=== PATIENT | female | born 1970 | race Caucasian/White ===

== ENCOUNTER 2017-02-03 10:30 | Day surgery (SDC) | payer OTHER ==
[~2017-02-03] VITALS: Ht 165.1 cm; Wt 79.5 kg
[~2017-02-03 10:30] MED LIST: CELEBREX200 MG PO; CIPRO500 MG PO; FLEXERIL10 MG PO; FLEXERIL5 MG PO; GABAPENTIN300 MG PO; HYDROCODON-ACE1 EAC7 PO; KEFLEX500 MG PO; MIRALAX255 GM PO; MOBIC15 MG PO; MOBIC7.5 MG PO; MORPHINE SULFAT15 M1 PO; MOTRIN800 MG PO; NAPROSYN500 MG PO; NEURONTIN300 MG PO; NORCO 5/3251 TABLET PO; PERCOCET 5/31 TABLET PO; PREDNISONE10 M1 PO; PREDNISONE10 MG PO; TESSALON PERLE100 MG PO; TRAZODONE HCL50 MG PO; ULTRAM50 MG PO; VOLTAREN50 MG PO; XANAX0.25 MG PO; ZITHROMAX Z-PA250 MG PO
[2017-02-03 11:10] VITALS: BP 153/86
[2017-02-03 11:36] LABS: AMPHETAMINES QUANT VALUE 0 NG/ML; BARBITUATES QUANT VALUE 0 NG/ML; BENZODIAZEPINES QUANT VALUE 0 NG/ML; BENZODIAZEPINES, URINE SCREEN Negative (200 ng/mL); MARIJUANA QUANT VALUE 0 NG/ML; PHENCYCLIDINE QUANT VALUE 0 NG/ML
[2017-02-03 18:01] VITALS: BP 150/83
[2017-02-03 19:50] VITALS: BP 136/71
[2017-02-03 23:27] VITALS: BP 115/57
[2017-02-04 03:32] VITALS: BP 107/62
[2017-02-04 07:02] LABS: HEMATOCRIT 31.7 % (36.0-46.0); MCH 30.6 PG (29.0-34.0); MCHC 33.8 G/DL (30.0-36.0); MCV 90.6 FL (83-99); MEAN PLAT.VOLUME 10.9 uM^3 (9.5-12.4); PLATELET COUNT 180 K/uL (156-360); RBC DIS.WIDTH-CV 13.2 % (11.8-14.6)
[2017-02-04 07:14] LABS: WHITE BLOOD COUNT 7.4 K/uL (4.1-10.2)
[2017-02-04 08:00] VITALS: BP 119/86
[2017-02-04] MEDS ORDERED: DOCUSATE SODIU100 MG PO (11:04)
[2017-02-04] MEDS ORDERED: OXAYDO5 MG PO (11:04)
== END 2017-02-04 12:37 | disposition home or self-care (01) ==
LOC: SDC 10:30 → 2SOUTH 15:03 → 2EAST 17:44
PROVIDERS: Anesthesiology; Obstetrics & Gynecology
PROC: 0UTC8ZZ Resection of Cervix, Via Natural or Artificial Opening Endoscopic (ICD-10-PCS; principal; 2017-02-03)
PROC: 0UT0FZZ Resection of Right Ovary, Via Natural or Artificial Opening With Percutaneous Endoscopic Assistance (ICD-10-PCS; principal; 2017-02-03)
PROC: 0UT5FZZ Resection of Right Fallopian Tube, Via Natural or Artificial Opening With Percutaneous Endoscopic Assistance (ICD-10-PCS; principal; 2017-02-03)
PROC: 0UT9FZZ Resection of Uterus, Via Natural or Artificial Opening With Percutaneous Endoscopic Assistance (ICD-10-PCS; principal; 2017-02-03)
DX: N92.0 Excessive and frequent menstruation with regular cycle (principal); N94.6 Dysmenorrhea, unspecified; R10.2 Pelvic and perineal pain; N72 Inflammatory disease of cervix uteri; N80.0 Endometriosis of uterus; D25.9 Leiomyoma of uterus, unspecified; N83.291 Other ovarian cyst, right side; Z80.41 Family history of malignant neoplasm of ovary; F17.210 Nicotine dependence, cigarettes, uncomplicated; Z87.898 Personal history of other specified conditions; Z83.3 Family history of diabetes mellitus; Z81.8 Family history of other mental and behavioral disorders; Z88.1 Allergy status to other antibiotic agents
CPT/HCPCS: 80306 90; 85027; 88307; G0378; J0690; J1100; J1170; J1885; J2250; J2405; J3010; J7120

== ENCOUNTER 2017-05-05 16:09 | Emergency (ER) | payer OTHER ==
[~2017-05-05] VITALS: Ht 165.1 cm; Wt 70.0 kg
[~2017-05-05 16:09] MED LIST changes: +DOCUSATE SODIU100 MG PO; +OXAYDO5 MG PO
[2017-05-05 17:32] LABS: ADD MIUA? YES; BILIRUBIN NEGATIVE; BLOOD NEGATIVE; COLOR YELLOW ((YELLOW)); GLUCOSE (STRIP) NEGATIVE; KETONES NEGATIVE; LEUKOCYTES NEGATIVE; NITRITE NEGATIVE; PROTEIN (STRIP) NEGATIVE; SPECIFIC GRAVITY 1.014 (1.000-1.030); UROBILINOGEN 0.2 MG/DL (0.2-1.0)
[2017-05-05] MEDS ORDERED: MOTRIN800 MG PO (18:34)
[2017-05-05] MEDS ORDERED: REGLAN10 MG PO (18:34)
[2017-05-05 19:01] LABS: EPITHELIAL CELLS 1+ /HPF; MUCUS NONE SEEN /LPF; RED BLOOD CELLS 0-5 /HPF (0-5); WHITE BLOOD CELLS 0-5 /HPF (0-5)
[2017-05-05 19:02] LABS: AMORPHOUS URATES CRYSTALS RARE; BACTERIA RARE /HPF
[2017-05-05 19:04] VITALS: BP 165/103
== END 2017-05-05 19:04 | disposition home or self-care (01) ==
LOC: EME 16:09 → RME 16:09
PROVIDERS: Physician Assistant
DX: G43.909 Migraine, unspecified, not intractable, without status migrainosus (principal); F17.200 Nicotine dependence, unspecified, uncomplicated
CPT/HCPCS: 81003; 99281; 99283; J1885; J2765

== ENCOUNTER 2017-06-14 22:14 | Inpatient (IN) | payer OTHER ==
[~2017-06-14] VITALS: Ht 167.6 cm; Wt 77.5 kg
[~2017-06-14 22:14] MED LIST changes: +CALAN80 MG PO; +IRON325 M1 PO; +LYRICA75 MG PO; +METHADONE H5 MG/5 ML PO; +REGLAN10 MG PO
[2017-06-15 07:17] VITALS: BP 129/65
[2017-06-15 13:18] LABS: HEMATOCRIT 40.2 % (36.0-46.0)
[2017-06-15 13:23] LABS: MCV 92.6 FL (83-99)
[2017-06-15 14:00] VITALS: BP 132/74
[2017-06-15 16:27] VITALS: BP 140/68
[2017-06-15 20:05] VITALS: BP 121/72
[2017-06-16 00:06] VITALS: BP 134/78
[2017-06-16 08:15] VITALS: BP 137/82
[2017-06-16 12:13] LABS: HEMATOCRIT 31.5 % (36.0-46.0)
[2017-06-16 12:26] LABS: MCV 88.2 FL (83-99)
[2017-06-16 15:58] VITALS: BP 148/77
[2017-06-17 00:05] VITALS: BP 137/73
[2017-06-17 07:32] VITALS: BP 134/70
[2017-06-17] MEDS ORDERED: OXYCODONE HCL5 MG PO (10:05)
[2017-06-17] MEDS ORDERED: SENNA PLUS TAB1 EACH PO (10:05)
[2017-06-17] MEDS ORDERED: ELIQUIS2.5 MG PO (10:05)
== END 2017-06-17 16:57 | disposition home or self-care (01) | DRG 470 ==
LOC: ENRESERV 22:14 → 2SOUTH 06-15 06:46 → ENRESERV 06-15 11:38 → 3EAST 06-15 13:10 → 2SOUTH 06-15 14:45 → 3EAST 06-17 16:57
PROVIDERS: Orthopaedic Surgery
PROC: 0SR904A Replacement of Right Hip Joint with Ceramic on Polyethylene Synthetic Substitute, Uncemented, Open Approach (ICD-10-PCS; principal; 2017-06-15)
DX: M25.551 Pain in right hip (principal); F17.200 Nicotine dependence, unspecified, uncomplicated; G89.4 Chronic pain syndrome
CPT/HCPCS: 85014; 85018; C1713; J0131; J0690; J1100; J1885; J2250; J2405; J7050; J7120; S0020

== ENCOUNTER 2017-10-26 10:39 | Emergency (ER) | payer OTHER ==
[~2017-10-26] VITALS: Ht 165.1 cm; Wt 70.3 kg
[~2017-10-26 10:39] MED LIST changes: +ELIQUIS2.5 MG PO; +OXYCODONE HCL5 MG PO; +SENNA PLUS TAB1 EACH PO
[2017-10-26 11:48] LABS: HEMATOCRIT 41.2 % (36.0-46.0); MCH 29.4 PG (29.0-34.0); MCV 86.4 FL (83-99); PLATELET COUNT 255 K/uL (156-360); RBC DIS.WIDTH-CV 14.5 % (11.8-14.6); RBC DIS.WIDTH-SD 45.8 % (39-53); RED BLOOD COUNT 4.77 M/uL (3.80-5.20); WHITE BLOOD COUNT 5.7 K/uL (4.1-10.2)
[2017-10-26 12:01] LABS: CHLORIDE 106 mEq/L (99-109); POTASSIUM 3.6 mEq/L (3.7-5.4); SODIUM 142 mEq/L (136-147)
[2017-10-26 12:03] LABS: GLUCOSE 98 mg/dL (70-99)
[2017-10-26 12:05] LABS: ANION GAP 12 MEQ/L (2-14); TOTAL BILIRUBIN 0.4 mg/dL (0.0-1.0)
[2017-10-26 12:07] LABS: ALKALINE PHOSPHATASE 114 IU/L (3-129); GFR ESTIMATE (CALCULATED) > 59 mL/min/
[2017-10-26 12:08] LABS: UREA NITROGEN (BUN) 10 mg/dL (9-23)
[2017-10-26 12:17] LABS: QUANTITATIVE HCG < 4.0 MIU/ML
[2017-10-26 13:37] LABS: ADD MIUA? YES; BILIRUBIN MODERATE; BLOOD NEGATIVE; COLOR YELLOW ((YELLOW)); GLUCOSE (STRIP) NEGATIVE; KETONES NEGATIVE; LEUKOCYTES TRACE; NITRITE NEGATIVE; PROTEIN (STRIP) 30; SPECIFIC GRAVITY 1.028 (1.000-1.030)
[2017-10-26 13:44] LABS: BACTERIA RARE /HPF; EPITHELIAL CELLS 1+ /HPF; MUCUS 3+ /LPF; UCUL ADDED? NO; WHITE BLOOD CELLS 0-5 /HPF (0-5)
[2017-10-26 13:51] LABS: ICTOTEST POSITIVE
[2017-10-26 15:57] VITALS: BP 149/105
== END 2017-10-26 15:58 | disposition home or self-care (01) ==
LOC: EME 10:39
DX: R51 Headache (principal); R11.2 Nausea with vomiting, unspecified; I10 Essential (primary) hypertension; F17.200 Nicotine dependence, unspecified, uncomplicated
CPT/HCPCS: 70450; 80053; 81003; 84702; 85027; J0780; J1885; J7030

== ENCOUNTER 2018-04-12 16:49 | Inpatient (IN) | payer OTHER ==
[~2018-04-12] VITALS: Ht 165.1 cm; Wt 75.0 kg
[2018-04-12 17:48] LABS: APPEARANCE CLOUDY ((CLEAR)); BILIRUBIN NEGATIVE; BLOOD SMALL; COLOR YELLOW ((YELLOW)); GLUCOSE (STRIP) 50; KETONES NEGATIVE; LEUKOCYTES SMALL; NITRITE NEGATIVE; PROTEIN (STRIP) 100; SPECIFIC GRAVITY 1.016 (1.000-1.030)
[2018-04-12 18:05] LABS: BACTERIA 1+ /HPF; EPITHELIAL CELLS 2+ /HPF; MUCUS 1+ /LPF; RED BLOOD CELLS RARE /HPF (0-5); UCUL ADDED? YES
[2018-04-12 18:14] LABS: AMPHETAMINE NEGATIVE (500 ng/mL); BARBITURATES NEGATIVE (200 ng/mL); BENZODIAZEPINES NEGATIVE (150 ng/mL); BUPRENORPHINE NEGATIVE (10 ng/mL); COCAINE NEGATIVE (150 ng/mL); METHADONE PRESUMPTIVE POSITIVE (200 ng/mL); METHAMPHETAMINE NEGATIVE (500 ng/mL); OPIATES (MORPHINE) NEGATIVE (100 ng/mL); OXYCODONE NEGATIVE (100 ng/mL); PHENCYCLIDINE NEGATIVE (25 ng/mL); PROPOXYPHENE NEGATIVE (300 ng/mL); THC CANNABINOIDS NEGATIVE (50 ng/mL); TRICYCLIC ANTIDEPRESSANTS PRESUMPTIVE POSITIVE (300 ng/mL)
[2018-04-12 18:16] LABS: BASOPHIL (%) 0.3 % (0-1); BASOPHIL COUNT 0.1 K/uL (0-0.1); EOSINOPHIL (%) 0.2 % (0-5); HEMATOCRIT 36.4 % (36.0-46.0); HEMOGLOBIN 12.1 G/DL (11.9-15.5); LYMPHOCYTE (%) 3.9 % (15-42); LYMPHOCYTE COUNT 0.7 K/uL (1.0-2.8); MCH 31.2 PG (29.0-34.0); MCHC 33.2 G/DL (30.0-36.0); MCV 93.8 FL (83-99); MONOCYTE (%) 6.4 % (3-12); MONOCYTE COUNT 1.2 K/uL (0-0.8); NEUTROPHIL (%) 88.2 % (45-76); NEUTROPHIL COUNT 16.3 K/uL (1.8-6.4); PLATELET COUNT 354 K/uL (156-360); RED BLOOD COUNT 3.88 M/uL (3.80-5.20); WHITE BLOOD COUNT 18.5 K/uL (4.1-10.2)
[2018-04-12 18:26] LABS: INTER. NORMALIZED RATIO 1.2
[2018-04-12 18:28] LABS: ALBUMIN 3.6 g/dL (3.2-4.8); CHLORIDE 101 mEq/L (99-109); POTASSIUM 4.2 mEq/L (3.7-5.4); SODIUM 132 mEq/L (136-147)
[2018-04-12 18:29] LABS: PTT 35.3 SEC (25-37)
[2018-04-12 18:31] LABS: GLUCOSE 73 mg/dL (70-99); TOTAL PROTEIN 7.1 g/dL (6.4-8.3)
[2018-04-12 18:32] LABS: TOTAL BILIRUBIN 0.5 mg/dL (0.0-1.0)
[2018-04-12 18:33] LABS: SERUM ETHYL ALCOHOL < 10 mg/dL
[2018-04-12 18:34] LABS: ALKALINE PHOSPHATASE 146 IU/L (3-129); GFR ESTIMATE (CALCULATED) 13 mL/min/
[2018-04-12 18:35] LABS: UREA NITROGEN (BUN) 64 mg/dL (9-23)
[2018-04-12 18:36] LABS: AST (GOT) 49 IU/L (2-34)
[2018-04-12 18:37] LABS: ALT (GPT) 32 IU/L (3-49)
[2018-04-12 18:38] LABS: LIPASE 6 U/L (1.0-51.0)
[2018-04-12 18:40] LABS: TROP-I INTERPRETATION NEGATIVE; TROPONIN-I 0.01 ng/mL (0.0-0.30)
[2018-04-12 23:30] VITALS: BP 93/55
[2018-04-13 03:49] VITALS: BP 105/63
[2018-04-13 06:38] LABS: HEMATOCRIT 29.8 % (36.0-46.0); HEMOGLOBIN 9.5 G/DL (11.9-15.5); MCH 30.7 PG (29.0-34.0); MCHC 31.9 G/DL (30.0-36.0); MCV 96.4 FL (83-99); PLATELET COUNT 276 K/uL (156-360); RBC DIS.WIDTH-CV 14.1 % (11.8-14.6); RED BLOOD COUNT 3.09 M/uL (3.80-5.20); WHITE BLOOD COUNT 14.1 K/uL (4.1-10.2)
[2018-04-13 07:07] LABS: ALBUMIN 2.4 G/DL (3.2-4.8); CHLORIDE 109 MEQ/L (99-109); POTASSIUM 3.6 MEQ/L (3.7-5.4); SODIUM 134 MEQ/L (136-147)
[2018-04-13 07:13] LABS: GFR ESTIMATE (CALCULATED) 23 mL/min/; PHOSPHORUS 3.2 mg/dL (2.5-4.9); UREA NITROGEN (BUN) 47 mg/dL (9-23)
[2018-04-13 07:15] VITALS: BP 90/54
[2018-04-13 07:21] LABS: GLUCOSE 92 mg/dL (70-99)
[2018-04-13 07:22] LABS: CREATININE 2.4 MG/DL (0.6-1.3)
[2018-04-13 11:01] LABS: HEPATITIS C ANTIBODY REACTIVE; HIV-1/2 AB/AG COMBO Nonreactive
[2018-04-13 11:15] VITALS: BP 105/58
[2018-04-13 15:30] VITALS: BP 94/69
[2018-04-13 22:48] VITALS: BP 126/70
[2018-04-13] MEDS ORDERED: INDERAL40 MG PO ×2 (23:02→23:15)
[2018-04-13] MEDS ORDERED: BUSPAR15 MG PO (23:12)
[2018-04-14 03:01] VITALS: BP 126/76
[2018-04-14 06:28] LABS: BASOPHIL (%) 0.3 % (0-1); EOSINOPHIL (%) 1.4 % (0-5); EOSINOPHIL COUNT 0.2 K/uL (0-0.3); HEMATOCRIT 31.6 % (36.0-46.0); IMMATURE GRANULOCYTE (%) 0.8 % (0.0-0.7); LYMPHOCYTE (%) 9.1 % (15-42); LYMPHOCYTE COUNT 1.1 K/uL (1.0-2.8); MCH 30.4 PG (29.0-34.0); MCHC 31.6 G/DL (30.0-36.0); MONOCYTE (%) 8.1 % (3-12); NEUTROPHIL (%) 80.3 % (45-76); NEUTROPHIL COUNT 9.9 K/uL (1.8-6.4); PLATELET COUNT 280 K/uL (156-360); RBC DIS.WIDTH-SD 50.1 % (39-53); RED BLOOD COUNT 3.29 M/uL (3.80-5.20); WHITE BLOOD COUNT 12.3 K/uL (4.1-10.2)
[2018-04-14 06:57] LABS: ALBUMIN 2.4 G/DL (3.2-4.8); ALKALINE PHOSPHATASE 123 IU/L (3-129); ALT (GPT) 17 IU/L (3-49); AST (GOT) 16 IU/L (2-34); CHLORIDE 115 MEQ/L (99-109); GLUCOSE 112 mg/dL (70-99); MAGNESIUM 2.9 mg/dl (1.3-2.7); POTASSIUM 3.5 MEQ/L (3.7-5.4); SODIUM 140 MEQ/L (136-147); TOTAL BILIRUBIN 0.4 MG/DL (0.0-1.0); TOTAL PROTEIN 4.7 G/DL (6.4-8.3)
[2018-04-14 06:59] LABS: CREATININE 0.9 MG/DL (0.6-1.3); GFR ESTIMATE (CALCULATED) > 59 mL/min/; PHOSPHORUS 1.8 mg/dL (2.5-4.9); UREA NITROGEN (BUN) 19 mg/dL (9-23)
[2018-04-14 07:42] VITALS: BP 78/52
[2018-04-14 11:18] VITALS: BP 129/85
[2018-04-14] MEDS ORDERED: TOPAMAX100 MG PO (12:15)
[2018-04-14] MEDS ORDERED: WELLBUTRIN XL150 MG PO (12:15)
[2018-04-14] MEDS ORDERED: BACLOFEN20 MG PO (12:16)
[2018-04-14] MEDS ORDERED: BUSPAR15 MG PO (12:16)
[2018-04-14] MEDS ORDERED: LITHIUM CARBON600 MG PO (12:17)
[2018-04-14] MEDS ORDERED: LYRICA50 MG PO (12:17)
[2018-04-14] MEDS ORDERED: SEROQUEL300 MG PO (12:17)
[2018-04-14] MEDS ORDERED: FLEXERIL10 MG PO (12:18)
[2018-04-14] MEDS ORDERED: METHADONE 22 MG/1 ML PO (12:18)
[2018-04-14] MEDS ORDERED: MAXALT10 MG PO (12:18)
[2018-04-14 15:12] VITALS: BP 91/51
[2018-04-14 20:00] VITALS: BP 158/104
[2018-04-14 23:46] VITALS: BP 127/83
[2018-04-15] VITALS (14 sets, daily range): BP systolic 84–149; BP diastolic 61–129
[2018-04-15 05:27] LABS: BASOPHIL (%) 0.4 % (0-1); EOSINOPHIL (%) 1.4 % (0-5); EOSINOPHIL COUNT 0.1 K/uL (0-0.3); HEMATOCRIT 30.1 % (36.0-46.0); HEMOGLOBIN 9.4 G/DL (11.9-15.5); IMMATURE GRANULOCYTE (%) 0.7 % (0.0-0.7); LYMPHOCYTE (%) 10.6 % (15-42); MCH 29.7 PG (29.0-34.0); MCHC 31.2 G/DL (30.0-36.0); MCV 95.3 FL (83-99); MONOCYTE (%) 10.7 % (3-12); NEUTROPHIL (%) 76.2 % (45-76); NEUTROPHIL COUNT 6.9 K/uL (1.8-6.4); PLATELET COUNT 277 K/uL (156-360); RBC DIS.WIDTH-CV 14.1 % (11.8-14.6); RBC DIS.WIDTH-SD 49.5 % (39-53); RED BLOOD COUNT 3.16 M/uL (3.80-5.20); WHITE BLOOD COUNT 9.1 K/uL (4.1-10.2)
[2018-04-15 06:25] LABS: CHLORIDE 117 MEQ/L (99-109); CREATININE 0.8 MG/DL (0.6-1.3); GFR ESTIMATE (CALCULATED) > 59 mL/min/; GLUCOSE 148 mg/dL (70-99); PHOSPHORUS 1.9 mg/dL (2.5-4.9); POTASSIUM 3.4 MEQ/L (3.7-5.4); SODIUM 143 MEQ/L (136-147); UREA NITROGEN (BUN) 9 mg/dL (9-23)
[2018-04-15 06:26] LABS: MAGNESIUM 2.2 mg/dl (1.3-2.7)
[2018-04-15 10:00] LABS: COMMENTS - BLOOD GASES NAC+; SITE RR
[2018-04-15 10:01] LABS: DEVICE NRB MASK; FI02 100 %; O2 FLOW > 15 L/MIN; PCO2 34 mm Hg (35-45); PO2 150 mm Hg (80-100); pH 7.39 (7.35-7.45)
[2018-04-15 10:02] LABS: BASE EXCESS -3.8 mEq/L (-3 to +3); BICARBONATE 20.6 mEq/L (22-26); CARBOXY HGB 1.4 % (0-5); METHEMOGLOBIN 1.7 % (0-1.5)
[2018-04-16] VITALS (20 sets, daily range): BP systolic 97–159; BP diastolic 65–123
[2018-04-16 09:02] LABS: BASOPHIL (%) 0.7 % (0-1); BASOPHIL COUNT 0.1 K/uL (0-0.1); EOSINOPHIL (%) 1.8 % (0-5); EOSINOPHIL COUNT 0.2 K/uL (0-0.3); HEMATOCRIT 32.7 % (36.0-46.0); HEMOGLOBIN 10.4 G/DL (11.9-15.5); IMMATURE GRANULOCYTE (%) 1.3 % (0.0-0.7); LYMPHOCYTE (%) 12.2 % (15-42); LYMPHOCYTE COUNT 1.4 K/uL (1.0-2.8); MCH 30.8 PG (29.0-34.0); MCHC 31.8 G/DL (30.0-36.0); MCV 96.7 FL (83-99); MONOCYTE (%) 9.6 % (3-12); MONOCYTE COUNT 1.1 K/uL (0-0.8); NEUTROPHIL (%) 74.4 % (45-76); NEUTROPHIL COUNT 8.5 K/uL (1.8-6.4); PLATELET COUNT 270 K/uL (156-360); RBC DIS.WIDTH-CV 14.4 % (11.8-14.6); RBC DIS.WIDTH-SD 50.8 % (39-53); RED BLOOD COUNT 3.38 M/uL (3.80-5.20); WHITE BLOOD COUNT 11.4 K/uL (4.1-10.2)
[2018-04-16 09:30] LABS: ALBUMIN 2.7 G/DL (3.2-4.8); ALT (GPT) 13 IU/L (3-49); AST (GOT) 15 IU/L (2-34); CHLORIDE 115 MEQ/L (99-109); CREATININE 0.7 MG/DL (0.6-1.3); GFR ESTIMATE (CALCULATED) > 59 mL/min/; GLUCOSE 123 mg/dL (70-99); SODIUM 145 MEQ/L (136-147); TOTAL BILIRUBIN 0.4 MG/DL (0.0-1.0); TOTAL PROTEIN 5.4 G/DL (6.4-8.3); UREA NITROGEN (BUN) 6 mg/dL (9-23)
[2018-04-16 09:31] LABS: ALKALINE PHOSPHATASE 163 IU/L (3-129); POTASSIUM 4.4 MEQ/L (3.7-5.4)
[2018-04-16 23:46] LABS: COMMENTS - BLOOD GASES C+; DEVICE VM; FI02 50 %; O2 FLOW 12 L/MIN; PCO2 28 mm Hg (35-45); PO2 51 mm Hg (80-100); SITE LR; TOTAL RESP RATE 31 resp/min; pH 7.52 (7.35-7.45)
[2018-04-16 23:47] LABS: BASE EXCESS 0.8 mEq/L (-3 to +3); BICARBONATE 22.9 mEq/L (22-26); CARBOXY HGB 2.2 % (0-5); METHEMOGLOBIN 0.9 % (0-1.5); O2 SATURATION (CALCULATED) 90.2 % (95-99)
[2018-04-17] VITALS (33 sets, daily range): BP systolic 82–133; BP diastolic 52–97
[2018-04-17 00:04] LABS: ALBUMIN 3.4 g/dL (3.2-4.8); POTASSIUM 4.3 mEq/L (3.7-5.4); SODIUM 144 mEq/L (136-147)
[2018-04-17 00:06] LABS: CHLORIDE 113 mEq/L (99-109); MAGNESIUM 2.1 mg/dL (1.3-2.7)
[2018-04-17 00:07] LABS: GLUCOSE 109 mg/dL (70-99); TOTAL PROTEIN 6.2 g/dL (6.4-8.3)
[2018-04-17 00:09] LABS: TOTAL BILIRUBIN 0.4 mg/dL (0.0-1.0)
[2018-04-17 00:10] LABS: ALKALINE PHOSPHATASE 182 IU/L (3-129); CREATININE 0.7 mg/dL (0.6-1.3); GFR ESTIMATE (CALCULATED) > 59 mL/min/
[2018-04-17 00:12] LABS: AST (GOT) 31 IU/L (2-34); UREA NITROGEN (BUN) 8 mg/dL (9-23)
[2018-04-17 00:13] LABS: ALT (GPT) 26 IU/L (3-49)
[2018-04-17 01:52] LABS: COMMENTS - BLOOD GASES C+; DEVICE VENT; FI02 100 %; MECHANICAL RATE 10 resp/min; MODE AC; SITE LR
[2018-04-17 01:53] LABS: PEEP 5 CM/H20; TIDAL VOLUME 430 ML; TOTAL RESP RATE 15 resp/min
[2018-04-17 01:54] LABS: BASE EXCESS -0.2 mEq/L (-3 to +3); BICARBONATE 24.8 mEq/L (22-26); METHEMOGLOBIN 1.4 % (0-1.5); O2 SATURATION (CALCULATED) 96.7 % (95-99); PCO2 41 mm Hg (35-45); PO2 223 mm Hg (80-100); pH 7.39 (7.35-7.45)
[2018-04-17 03:08] LABS: BASOPHIL (%) 0.5 % (0-1); BASOPHIL COUNT 0.1 K/uL (0-0.1); EOSINOPHIL COUNT 0.3 K/uL (0-0.3); HEMATOCRIT 32.9 % (36.0-46.0); HEMOGLOBIN 10.7 G/DL (11.9-15.5); IMMATURE GRANULOCYTE (%) 2.3 % (0.0-0.7); LYMPHOCYTE (%) 9.5 % (15-42); LYMPHOCYTE COUNT 1.3 K/uL (1.0-2.8); MCH 31.1 PG (29.0-34.0); MCHC 32.5 G/DL (30.0-36.0); MCV 95.6 FL (83-99); MONOCYTE (%) 7.9 % (3-12); MONOCYTE COUNT 1.1 K/uL (0-0.8); NEUTROPHIL (%) 77.8 % (45-76); NEUTROPHIL COUNT 10.3 K/uL (1.8-6.4); NRBC (%) 0.2 /100 WBC (0-0); PLATELET COUNT 305 K/uL (156-360); RBC DIS.WIDTH-CV 14.3 % (11.8-14.6); RBC DIS.WIDTH-SD 50.3 % (39-53); RED BLOOD COUNT 3.44 M/uL (3.80-5.20); WHITE BLOOD COUNT 13.2 K/uL (4.1-10.2)
[2018-04-17 03:17] LABS: CHLORIDE 113 mEq/L (99-109); POTASSIUM 3.7 mEq/L (3.7-5.4); SODIUM 146 mEq/L (136-147)
[2018-04-17 03:18] LABS: GLUCOSE 137 mg/dL (70-99)
[2018-04-17 03:22] LABS: CREATININE 0.7 mg/dL (0.6-1.3); GFR ESTIMATE (CALCULATED) > 59 mL/min/
[2018-04-17 03:23] LABS: UREA NITROGEN (BUN) 8 mg/dL (9-23)
[2018-04-17 18:13] LABS: TROP-I INTERPRETATION NEGATIVE; TROPONIN-I 0.02 ng/mL (0.0-0.30)
[2018-04-17 23:19] LABS: TROP-I INTERPRETATION NEGATIVE; TROPONIN-I 0.03 ng/mL (0.0-0.30)
[2018-04-18] VITALS (22 sets, daily range): BP systolic 75–157; BP diastolic 41–98
[2018-04-18 06:18] LABS: BASOPHIL (%) 0.5 % (0-1); EOSINOPHIL (%) 1.5 % (0-5); EOSINOPHIL COUNT 0.1 K/uL (0-0.3); HEMATOCRIT 30.5 % (36.0-46.0); HEMOGLOBIN 9.6 G/DL (11.9-15.5); LYMPHOCYTE (%) 11.9 % (15-42); MCH 30.3 PG (29.0-34.0); MCHC 31.5 G/DL (30.0-36.0); MCV 96.2 FL (83-99); MONOCYTE COUNT 0.6 K/uL (0-0.8); NEUTROPHIL (%) 75.1 % (45-76); NEUTROPHIL COUNT 6.4 K/uL (1.8-6.4); PLATELET COUNT 241 K/uL (156-360); RBC DIS.WIDTH-CV 14.2 % (11.8-14.6); RBC DIS.WIDTH-SD 50.4 % (39-53); RED BLOOD COUNT 3.17 M/uL (3.80-5.20); WHITE BLOOD COUNT 8.5 K/uL (4.1-10.2)
[2018-04-18 06:37] LABS: TROP-I INTERPRETATION NEGATIVE; TROPONIN-I 0.03 ng/mL (0.0-0.30)
[2018-04-18 06:42] LABS: CHLORIDE 110 MEQ/L (99-109); CREATININE 0.7 MG/DL (0.6-1.3); GFR ESTIMATE (CALCULATED) > 59 mL/min/; GLUCOSE 151 mg/dL (70-99); PHOSPHORUS 2.4 mg/dL (2.5-4.9); POTASSIUM 3.2 MEQ/L (3.7-5.4); SODIUM 146 MEQ/L (136-147); UREA NITROGEN (BUN) 12 mg/dL (9-23)
[2018-04-19] VITALS (20 sets, daily range): BP systolic 85–165; BP diastolic 54–103
[2018-04-19 05:33] LABS: BASOPHIL (%) 0.3 % (0-1); EOSINOPHIL COUNT 0.3 K/uL (0-0.3); HEMATOCRIT 29.7 % (36.0-46.0); HEMOGLOBIN 9.2 G/DL (11.9-15.5); IMMATURE GRANULOCYTE (%) 2.2 % (0.0-0.7); LYMPHOCYTE (%) 20.8 % (15-42); LYMPHOCYTE COUNT 1.5 K/uL (1.0-2.8); MCH 30.1 PG (29.0-34.0); MCV 97.1 FL (83-99); MONOCYTE (%) 7.1 % (3-12); MONOCYTE COUNT 0.5 K/uL (0-0.8); NEUTROPHIL (%) 65.6 % (45-76); NEUTROPHIL COUNT 4.7 K/uL (1.8-6.4); PLATELET COUNT 239 K/uL (156-360); RBC DIS.WIDTH-CV 14.2 % (11.8-14.6); RBC DIS.WIDTH-SD 50.4 % (39-53); RED BLOOD COUNT 3.06 M/uL (3.80-5.20); WHITE BLOOD COUNT 7.2 K/uL (4.1-10.2)
[2018-04-19 06:29] LABS: ALBUMIN 2.5 G/DL (3.2-4.8); CHLORIDE 111 MEQ/L (99-109); CREATININE 0.6 MG/DL (0.6-1.3); GFR ESTIMATE (CALCULATED) > 59 mL/min/; GLUCOSE 124 mg/dL (70-99); MAGNESIUM 2.2 mg/dl (1.3-2.7); SODIUM 148 MEQ/L (136-147); TOTAL PROTEIN 4.9 G/DL (6.4-8.3); UREA NITROGEN (BUN) 11 mg/dL (9-23)
[2018-04-19 06:37] LABS: ALKALINE PHOSPHATASE 100 IU/L (3-129); ALT (GPT) 25 IU/L (3-49); AST (GOT) 30 IU/L (2-34); PHOSPHORUS 3.5 mg/dL (2.5-4.9); POTASSIUM 3.9 MEQ/L (3.7-5.4); TOTAL BILIRUBIN 0.2 MG/DL (0.0-1.0)
[2018-04-19 13:45] LABS: CREATINE KINASE 294 IU/L (1-294); HIGH-SENS C-REACTIVE PROTEIN 6.15 MG/DL (0.02-0.20); TRIGLYCERIDES 94 MG/DL (Normal: <150)
[2018-04-19 13:55] LABS: THYROTROPIN (TSH) 2.4 MIU/L (0.4-5.5)
[2018-04-20] VITALS (22 sets, daily range): BP systolic 82–149; BP diastolic 6–103
[2018-04-20 05:16] LABS: BASOPHIL (%) 0.4 % (0-1); EOSINOPHIL (%) 4.6 % (0-5); EOSINOPHIL COUNT 0.3 K/uL (0-0.3); HEMATOCRIT 28.4 % (36.0-46.0); HEMOGLOBIN 8.6 G/DL (11.9-15.5); IMMATURE GRANULOCYTE (%) 1.8 % (0.0-0.7); LYMPHOCYTE (%) 19.5 % (15-42); LYMPHOCYTE COUNT 1.4 K/uL (1.0-2.8); MCH 29.9 PG (29.0-34.0); MCHC 30.3 G/DL (30.0-36.0); MCV 98.6 FL (83-99); MONOCYTE (%) 7.4 % (3-12); MONOCYTE COUNT 0.5 K/uL (0-0.8); NEUTROPHIL (%) 66.3 % (45-76); NEUTROPHIL COUNT 4.9 K/uL (1.8-6.4); PLATELET COUNT 228 K/uL (156-360); RBC DIS.WIDTH-SD 50.8 % (39-53); RED BLOOD COUNT 2.88 M/uL (3.80-5.20); WHITE BLOOD COUNT 7.3 K/uL (4.1-10.2)
[2018-04-20 05:41] LABS: ALBUMIN 2.6 G/DL (3.2-4.8); ALKALINE PHOSPHATASE 97 IU/L (3-129); ALT (GPT) 24 IU/L (3-49); AST (GOT) 24 IU/L (2-34); CHLORIDE 111 MEQ/L (99-109); CREATININE 0.6 MG/DL (0.6-1.3); GFR ESTIMATE (CALCULATED) > 59 mL/min/; GLUCOSE 141 mg/dL (70-99); POTASSIUM 3.6 MEQ/L (3.7-5.4); SODIUM 148 MEQ/L (136-147); TOTAL BILIRUBIN 0.2 MG/DL (0.0-1.0); TOTAL PROTEIN 5.3 G/DL (6.4-8.3); UREA NITROGEN (BUN) 16 mg/dL (9-23)
[2018-04-20 05:42] LABS: HIGH-SENS C-REACTIVE PROTEIN 5.09 MG/DL (0.02-0.20); MAGNESIUM 2.2 mg/dl (1.3-2.7); PHOSPHORUS 3.7 mg/dL (2.5-4.9)
[2018-04-20 06:10] LABS: COMMENTS - BLOOD GASES C+A+; DEVICE VENT; FI02 30 %; MECHANICAL RATE 12 resp/min; MODE AC; SITE LR; TIDAL VOLUME 450 ML; TOTAL RESP RATE 13 resp/min
[2018-04-20 06:11] LABS: BASE EXCESS 7.9 mEq/L (-3 to +3); BICARBONATE 33.2 mEq/L (22-26); CARBOXY HGB 1.2 % (0-5); METHEMOGLOBIN 1.2 % (0-1.5); PCO2 50 mm Hg (35-45); PEEP 5 CM/H20; PO2 84 mm Hg (80-100); pH 7.43 (7.35-7.45)
[2018-04-21] VITALS (19 sets, daily range): BP systolic 128–164; BP diastolic 78–120
[2018-04-21 05:28] LABS: BASOPHIL (%) 0.3 % (0-1); EOSINOPHIL COUNT 0.4 K/uL (0-0.3); HEMATOCRIT 27.5 % (36.0-46.0); HEMOGLOBIN 8.7 G/DL (11.9-15.5); LYMPHOCYTE (%) 13.6 % (15-42); LYMPHOCYTE COUNT 1.2 K/uL (1.0-2.8); MCH 30.2 PG (29.0-34.0); MCHC 31.6 G/DL (30.0-36.0); MCV 95.5 FL (83-99); MONOCYTE (%) 6.4 % (3-12); MONOCYTE COUNT 0.6 K/uL (0-0.8); NEUTROPHIL (%) 73.7 % (45-76); NEUTROPHIL COUNT 6.5 K/uL (1.8-6.4); PLATELET COUNT 272 K/uL (156-360); RBC DIS.WIDTH-CV 13.1 % (11.8-14.6); RBC DIS.WIDTH-SD 45.6 % (39-53); RED BLOOD COUNT 2.88 M/uL (3.80-5.20); WHITE BLOOD COUNT 8.9 K/uL (4.1-10.2)
[2018-04-21 06:14] LABS: ALBUMIN 2.8 G/DL (3.2-4.8); ALKALINE PHOSPHATASE 108 IU/L (3-129); ALT (GPT) 33 IU/L (3-49); CHLORIDE 111 MEQ/L (99-109); CREATININE 0.5 MG/DL (0.6-1.3); GFR ESTIMATE (CALCULATED) > 59 mL/min/; GLUCOSE 130 mg/dL (70-99); MAGNESIUM 2.1 mg/dl (1.3-2.7); PHOSPHORUS 2.9 mg/dL (2.5-4.9); SODIUM 147 MEQ/L (136-147); TOTAL BILIRUBIN 0.2 MG/DL (0.0-1.0); TOTAL PROTEIN 5.5 G/DL (6.4-8.3); UREA NITROGEN (BUN) 17 mg/dL (9-23)
[2018-04-21 06:16] LABS: AST (GOT) 37 IU/L (2-34); POTASSIUM 4.5 MEQ/L (3.7-5.4)
[2018-04-21 08:32] LABS: BASE EXCESS 5.6 mEq/L (-3 to +3); BICARBONATE 29.8 mEq/L (22-26); CARBOXY HGB 1.5 % (0-5); COMMENTS - BLOOD GASES A+C+; DEVICE 980; METHEMOGLOBIN 1.1 % (0-1.5); MODE TC; PCO2 41 mm Hg (35-45); PO2 69 mm Hg (80-100); SITE LR; pH 7.47 (7.35-7.45)
[2018-04-22] VITALS (20 sets, daily range): BP systolic 93–166; BP diastolic 59–95
[2018-04-22 05:04] LABS: BASOPHIL (%) 0.7 % (0-1); BASOPHIL COUNT 0.1 K/uL (0-0.1); EOSINOPHIL (%) 3.4 % (0-5); EOSINOPHIL COUNT 0.2 K/uL (0-0.3); HEMOGLOBIN 8.6 G/DL (11.9-15.5); IMMATURE GRANULOCYTE (%) 1.4 % (0.0-0.7); LYMPHOCYTE (%) 18.8 % (15-42); LYMPHOCYTE COUNT 1.3 K/uL (1.0-2.8); MCH 29.9 PG (29.0-34.0); MCHC 31.9 G/DL (30.0-36.0); MCV 93.8 FL (83-99); MONOCYTE (%) 9.7 % (3-12); MONOCYTE COUNT 0.7 K/uL (0-0.8); NEUTROPHIL COUNT 4.7 K/uL (1.8-6.4); PLATELET COUNT 260 K/uL (156-360); RBC DIS.WIDTH-CV 12.5 % (11.8-14.6); RBC DIS.WIDTH-SD 42.5 % (39-53); RED BLOOD COUNT 2.88 M/uL (3.80-5.20); WHITE BLOOD COUNT 7.1 K/uL (4.1-10.2)
[2018-04-22 06:01] LABS: ALBUMIN 2.5 G/DL (3.2-4.8); ALKALINE PHOSPHATASE 90 IU/L (3-129); ALT (GPT) 40 IU/L (3-49); AST (GOT) 48 IU/L (2-34); CHLORIDE 103 MEQ/L (99-109); CREATININE 0.5 MG/DL (0.6-1.3); GFR ESTIMATE (CALCULATED) > 59 mL/min/; GLUCOSE 106 mg/dL (70-99); PHOSPHORUS 3.4 mg/dL (2.5-4.9); POTASSIUM 4.1 MEQ/L (3.7-5.4); SODIUM 140 MEQ/L (136-147); TOTAL PROTEIN 5.1 G/DL (6.4-8.3); UREA NITROGEN (BUN) 16 mg/dL (9-23)
[2018-04-22 06:22] LABS: TOTAL BILIRUBIN 0.3 MG/DL (0.0-1.0)
[2018-04-23] VITALS (14 sets, daily range): BP systolic 99–179; BP diastolic 67–96
[2018-04-23 05:04] LABS: BASOPHIL (%) 0.5 % (0-1); EOSINOPHIL COUNT 0.2 K/uL (0-0.3); HEMATOCRIT 31.2 % (36.0-46.0); HEMOGLOBIN 10.5 G/DL (11.9-15.5); IMMATURE GRANULOCYTE (%) 1.1 % (0.0-0.7); LYMPHOCYTE (%) 15.3 % (15-42); LYMPHOCYTE COUNT 1.2 K/uL (1.0-2.8); MCH 30.7 PG (29.0-34.0); MCHC 33.7 G/DL (30.0-36.0); MCV 91.2 FL (83-99); MONOCYTE (%) 9.3 % (3-12); MONOCYTE COUNT 0.7 K/uL (0-0.8); NEUTROPHIL (%) 71.8 % (45-76); NEUTROPHIL COUNT 5.4 K/uL (1.8-6.4); RBC DIS.WIDTH-CV 12.8 % (11.8-14.6); RBC DIS.WIDTH-SD 42.1 % (39-53); RED BLOOD COUNT 3.42 M/uL (3.80-5.20); WHITE BLOOD COUNT 7.6 K/uL (4.1-10.2)
[2018-04-23 05:07] LABS: PLATELET COUNT 404 K/uL (156-360)
[2018-04-23 05:23] LABS: ALBUMIN 3.3 g/dL (3.2-4.8); CHLORIDE 102 mEq/L (99-109); POTASSIUM 3.3 mEq/L (3.7-5.4); SODIUM 140 mEq/L (136-147)
[2018-04-23 05:24] LABS: MAGNESIUM 2.1 mg/dL (1.3-2.7)
[2018-04-23 05:26] LABS: GLUCOSE 90 mg/dL (70-99); TOTAL PROTEIN 5.8 g/dL (6.4-8.3)
[2018-04-23 05:28] LABS: TOTAL BILIRUBIN 0.3 mg/dL (0.0-1.0)
[2018-04-23 05:29] LABS: ALKALINE PHOSPHATASE 130 IU/L (3-129); CREATININE 0.6 mg/dL (0.6-1.3); GFR ESTIMATE (CALCULATED) > 59 mL/min/
[2018-04-23 05:30] LABS: UREA NITROGEN (BUN) 10 mg/dL (9-23)
[2018-04-23 05:31] LABS: AST (GOT) 55 IU/L (2-34)
[2018-04-23 05:33] LABS: ALT (GPT) 62 IU/L (3-49)
[2018-04-24] VITALS (7 sets, daily range): BP systolic 130–171; BP diastolic 63–89
[2018-04-24 06:25] LABS: BASOPHIL (%) 0.5 % (0-1); EOSINOPHIL (%) 1.2 % (0-5); EOSINOPHIL COUNT 0.1 K/uL (0-0.3); HEMATOCRIT 29.8 % (36.0-46.0); HEMOGLOBIN 9.9 G/DL (11.9-15.5); IMMATURE GRANULOCYTE (%) 0.5 % (0.0-0.7); LYMPHOCYTE (%) 21.2 % (15-42); LYMPHOCYTE COUNT 1.2 K/uL (1.0-2.8); MCH 29.8 PG (29.0-34.0); MCHC 33.2 G/DL (30.0-36.0); MCV 89.8 FL (83-99); MONOCYTE (%) 9.9 % (3-12); MONOCYTE COUNT 0.6 K/uL (0-0.8); NEUTROPHIL (%) 66.7 % (45-76); NEUTROPHIL COUNT 3.9 K/uL (1.8-6.4); PLATELET COUNT 418 K/uL (156-360); RBC DIS.WIDTH-CV 12.6 % (11.8-14.6); RBC DIS.WIDTH-SD 41.2 % (39-53); RED BLOOD COUNT 3.32 M/uL (3.80-5.20); WHITE BLOOD COUNT 5.9 K/uL (4.1-10.2)
[2018-04-24 06:52] LABS: ALBUMIN 3.2 G/DL (3.2-4.8); ALKALINE PHOSPHATASE 112 IU/L (3-129); ALT (GPT) 44 IU/L (3-49); AST (GOT) 33 IU/L (2-34); CHLORIDE 101 MEQ/L (99-109); CREATININE 0.4 MG/DL (0.6-1.3); GFR ESTIMATE (CALCULATED) > 59 mL/min/; GLUCOSE 93 mg/dL (70-99); MAGNESIUM 2.1 mg/dl (1.3-2.7); POTASSIUM 2.8 MEQ/L (3.7-5.4); SODIUM 140 MEQ/L (136-147); TOTAL BILIRUBIN 0.3 MG/DL (0.0-1.0); UREA NITROGEN (BUN) 7 mg/dL (9-23)
[2018-04-24 06:58] LABS: TOTAL PROTEIN 5.9 G/DL (6.4-8.3)
[2018-04-25 06:29] LABS: BASOPHIL COUNT 0.1 K/uL (0-0.1); EOSINOPHIL (%) 1.2 % (0-5); EOSINOPHIL COUNT 0.1 K/uL (0-0.3); HEMATOCRIT 34.1 % (36.0-46.0); HEMOGLOBIN 11.1 G/DL (11.9-15.5); IMMATURE GRANULOCYTE (%) 0.8 % (0.0-0.7); LYMPHOCYTE COUNT 1.7 K/uL (1.0-2.8); MCH 29.9 PG (29.0-34.0); MCHC 32.6 G/DL (30.0-36.0); MCV 91.9 FL (83-99); MONOCYTE (%) 10.2 % (3-12); MONOCYTE COUNT 0.5 K/uL (0-0.8); NEUTROPHIL (%) 53.8 % (45-76); NEUTROPHIL COUNT 2.8 K/uL (1.8-6.4); PLATELET COUNT 458 K/uL (156-360); RBC DIS.WIDTH-SD 42.9 % (39-53); RED BLOOD COUNT 3.71 M/uL (3.80-5.20); WHITE BLOOD COUNT 5.2 K/uL (4.1-10.2)
[2018-04-25 06:58] LABS: ALBUMIN 3.1 G/DL (3.2-4.8); ALKALINE PHOSPHATASE 100 IU/L (3-129); ALT (GPT) 40 IU/L (3-49); AST (GOT) 29 IU/L (2-34); CHLORIDE 103 MEQ/L (99-109); CREATININE 0.5 MG/DL (0.6-1.3); GFR ESTIMATE (CALCULATED) > 59 mL/min/; GLUCOSE 97 mg/dL (70-99); MAGNESIUM 2.2 mg/dl (1.3-2.7); PHOSPHORUS 3.5 mg/dL (2.5-4.9); POTASSIUM 3.3 MEQ/L (3.7-5.4); SODIUM 143 MEQ/L (136-147); TOTAL BILIRUBIN 0.3 MG/DL (0.0-1.0); TOTAL PROTEIN 5.8 G/DL (6.4-8.3); UREA NITROGEN (BUN) 8 mg/dL (9-23)
[2018-04-25 07:52] VITALS: BP 144/86
[2018-04-25 11:44] VITALS: BP 137/89
[2018-04-25 20:19] VITALS: BP 176/84
[2018-04-26 02:13] VITALS: BP 168/80
[2018-04-26 05:00] VITALS: BP 166/78
[2018-04-26 06:31] LABS: BASOPHIL (%) 1.4 % (0-1); BASOPHIL COUNT 0.1 K/uL (0-0.1); EOSINOPHIL (%) 2.2 % (0-5); EOSINOPHIL COUNT 0.1 K/uL (0-0.3); HEMATOCRIT 33.2 % (36.0-46.0); HEMOGLOBIN 10.8 G/DL (11.9-15.5); IMMATURE GRANULOCYTE (%) 0.6 % (0.0-0.7); LYMPHOCYTE (%) 32.7 % (15-42); LYMPHOCYTE COUNT 1.7 K/uL (1.0-2.8); MCH 30.2 PG (29.0-34.0); MCHC 32.5 G/DL (30.0-36.0); MCV 92.7 FL (83-99); MONOCYTE (%) 9.3 % (3-12); MONOCYTE COUNT 0.5 K/uL (0-0.8); NEUTROPHIL (%) 53.8 % (45-76); NEUTROPHIL COUNT 2.7 K/uL (1.8-6.4); PLATELET COUNT 497 K/uL (156-360); RBC DIS.WIDTH-CV 13.2 % (11.8-14.6); RBC DIS.WIDTH-SD 44.1 % (39-53); RED BLOOD COUNT 3.58 M/uL (3.80-5.20); WHITE BLOOD COUNT 5.1 K/uL (4.1-10.2)
[2018-04-26 06:55] LABS: ALBUMIN 3.4 G/DL (3.2-4.8); ALKALINE PHOSPHATASE 105 IU/L (3-129); ALT (GPT) 38 IU/L (3-49); AST (GOT) 27 IU/L (2-34); CHLORIDE 102 MEQ/L (99-109); CREATININE 0.6 MG/DL (0.6-1.3); GFR ESTIMATE (CALCULATED) > 59 mL/min/; GLUCOSE 82 mg/dL (70-99); MAGNESIUM 2.3 mg/dl (1.3-2.7); POTASSIUM 3.6 MEQ/L (3.7-5.4); SODIUM 143 MEQ/L (136-147); TOTAL BILIRUBIN 0.3 MG/DL (0.0-1.0); TOTAL PROTEIN 5.9 G/DL (6.4-8.3); UREA NITROGEN (BUN) 8 mg/dL (9-23)
[2018-04-26 07:49] VITALS: BP 136/82
[2018-04-26] MEDS ORDERED: ARIPIPRAZOLE5 MG PO (10:55)
[2018-04-26] MEDS ORDERED: LOPRESSOR25 MG PO (10:55)
[2018-05-19] MEDS ORDERED: METHADOSE40 MG PO (08:50)
== END 2018-04-26 13:39 | disposition home health service (06) | DRG 70 ==
LOC: EME 16:49 → 4WEST 21:17 → 5EAST 21:17 → EDOF 21:17 → ENRESERV 21:18 → 5EAST 22:50 → ENRESERV 04-14 12:56 → 4EAST 04-14 13:08 → CANRESERV 04-14 18:07 → ENRESERV 04-14 18:07 → 4EAST 04-14 19:06 → ENRESERV 04-15 09:43 → 4WEST 04-15 09:58 → ENRESERV 04-23 14:43 → 3EAST 04-23 15:50
PROVIDERS: Emergency Medicine; Hospitalist; Internal Medicine; Internal Medicine Cardiovascular Disease; Internal Medicine Critical Care Medicine; Internal Medicine Nephrology; Internal Medicine Pulmonary Disease; Obstetrics & Gynecology; Specialist
PROC: 5A1955Z Respiratory Ventilation, Greater than 96 Consecutive Hours (ICD-10-PCS; principal; 2018-04-17)
PROC: 0BH17EZ Insertion of Endotracheal Airway into Trachea, Via Natural or Artificial Opening (ICD-10-PCS; 2018-04-17)
PROC: 05HM33Z Insertion of Infusion Device into Right Internal Jugular Vein, Percutaneous Approach (ICD-10-PCS; 2018-04-17)
DX: G93.41 Metabolic encephalopathy (principal); J86.9 Pyothorax without fistula; K72.00 Acute and subacute hepatic failure without coma; J69.0 Pneumonitis due to inhalation of food and vomit; J96.01 Acute respiratory failure with hypoxia; N17.9 Acute kidney failure, unspecified; N39.0 Urinary tract infection, site not specified; E87.2 Acidosis; F11.20 Opioid dependence, uncomplicated; F31.32 Bipolar disorder, current episode depressed, moderate; I47.1 Supraventricular tachycardia; J90 Pleural effusion, not elsewhere classified; J98.11 Atelectasis; F05 Delirium due to known physiological condition; E87.0 Hyperosmolality and hypernatremia; E87.1 Hypo-osmolality and hyponatremia; B18.2 Chronic viral hepatitis C; E86.0 Dehydration; E87.6 Hypokalemia; F17.210 Nicotine dependence, cigarettes, uncomplicated; F43.10 Post-traumatic stress disorder, unspecified; G89.29 Other chronic pain; I10 Essential (primary) hypertension; J06.9 Acute upper respiratory infection, unspecified; I48.0 Paroxysmal atrial fibrillation; H60.12 Cellulitis of left external ear; N83.201 Unspecified ovarian cyst, right side; Z96.641 Presence of right artificial hip joint; F14.10 Cocaine abuse, uncomplicated; Y90.0 Blood alcohol level of less than 20 mg/100 ml; R45.1 Restlessness and agitation; K59.00 Constipation, unspecified; L89.150 Pressure ulcer of sacral region, unstageable; L89.320 Pressure ulcer of left buttock, unstageable; L89.621 Pressure ulcer of left heel, stage 1; L89.611 Pressure ulcer of right heel, stage 1; M54.9 Dorsalgia, unspecified; R01.1 Cardiac murmur, unspecified; M43.6 Torticollis; I35.8 Other nonrheumatic aortic valve disorders; I27.20 Pulmonary hypertension, unspecified; I34.0 Nonrheumatic mitral (valve) insufficiency; I36.1 Nonrheumatic tricuspid (valve) insufficiency; F10.20 Alcohol dependence, uncomplicated; Z90.710 Acquired absence of both cervix and uterus; Z79.01 Long term (current) use of anticoagulants; Z78.1 Physical restraint status
CPT/HCPCS: 31500; 36600; 70450; 70551; 71045; 71046; 71250; 76770; 80048; 80053; 80069; 80178; 81003; 82140; 82330; 82550; 82803; 82945; 83605; 83615 91; 83690; 83735; 83930; 83935; 83986 90; 84100; 84145 90; 84157; 84300; 84443; 84478; 84484; 85025; 85027; 85610; 85730; 86141; 86803; 87040; 87070; 87086; 87116; 87205; 87206; 87389; 87641; 89051; 92526 GN; 92610 GN; 93005; 93306; 94002; 94003; 94799; 95819; 99281; 99285; C1751; C1753; G0480; J0295; J0696; J1200; J1630; J1644; J1885; J2060; J2704; J3010; J3411; J3475; J3480; J7030; J7042; J7050; S0028

== ENCOUNTER 2018-05-14 14:43 | Emergency (ER) | payer OTHER ==
[~2018-05-14] VITALS: Ht 165.1 cm; Wt 69.4 kg
[~2018-05-14 14:43] MED LIST changes: +ARIPIPRAZOLE5 MG PO; +BACLOFEN20 MG PO; +BUSPAR15 MG PO; +INDERAL40 MG PO; +LITHIUM CARBON600 MG PO; +LOPRESSOR25 MG PO; +LYRICA50 MG PO; +MAXALT10 MG PO; +METHADONE 22 MG/1 ML PO; +SEROQUEL300 MG PO; +TOPAMAX100 MG PO; +WELLBUTRIN XL150 MG PO
[2018-05-14 16:11] LABS: HEMATOCRIT 33.2 % (36.0-46.0); HEMOGLOBIN 10.8 G/DL (11.9-15.5); MCH 30.6 PG (29.0-34.0); MCHC 32.5 G/DL (30.0-36.0); MCV 94.1 FL (83-99); RBC DIS.WIDTH-CV 13.2 % (11.8-14.6); RBC DIS.WIDTH-SD 45.2 % (39-53); RED BLOOD COUNT 3.53 M/uL (3.80-5.20); WHITE BLOOD COUNT 4.8 K/uL (4.1-10.2)
[2018-05-14 16:16] LABS: ALBUMIN 3.6 g/dL (3.2-4.8); CHLORIDE 108 mEq/L (99-109); POTASSIUM 3.7 mEq/L (3.7-5.4); SODIUM 142 mEq/L (136-147)
[2018-05-14 16:19] LABS: GLUCOSE 78 mg/dL (70-99); TOTAL PROTEIN 6.2 g/dL (6.4-8.3)
[2018-05-14 16:21] LABS: TOTAL BILIRUBIN 0.2 mg/dL (0.0-1.0)
[2018-05-14 16:22] LABS: ALKALINE PHOSPHATASE 129 IU/L (3-129); CREATININE 0.8 mg/dL (0.6-1.3); GFR ESTIMATE (CALCULATED) > 59 mL/min/
[2018-05-14 16:23] LABS: UREA NITROGEN (BUN) 8 mg/dL (9-23)
[2018-05-14 16:24] LABS: AST (GOT) 23 IU/L (2-34)
[2018-05-14 16:25] LABS: ALT (GPT) 17 IU/L (3-49)
[2018-05-14 16:48] LABS: PLAT.SUFFICIENCY ADEQUATE
[2018-05-14 16:52] LABS: PLATELET COUNT 188 K/uL (156-360)
[2018-05-14 19:00] LABS: APPEARANCE CLEAR ((CLEAR)); BILIRUBIN NEGATIVE; BLOOD NEGATIVE; COLOR STRAW ((YELLOW)); GLUCOSE (STRIP) NEGATIVE; KETONES NEGATIVE; LEUKOCYTES NEGATIVE; NITRITE NEGATIVE; PROTEIN (STRIP) NEGATIVE; SPECIFIC GRAVITY 1.018 (1.000-1.030); UCUL ADDED? NO; UROBILINOGEN 0.2 MG/DL (0.2-1.0)
[2018-05-14 19:57] VITALS: BP 144/84
== END 2018-05-14 20:00 | disposition home or self-care (01) ==
LOC: EME 14:43
PROVIDERS: Nurse Practitioner Family
DX: L89.159 Pressure ulcer of sacral region, unspecified stage (principal); J90 Pleural effusion, not elsewhere classified; Z87.891 Personal history of nicotine dependence; Z88.1 Allergy status to other antibiotic agents
CPT/HCPCS: 74177; 80053; 81003; 85027; 99281; 99284; J7030

== ENCOUNTER 2018-05-19 19:51 | Inpatient (IN) | payer OTHER ==
[~2018-05-19] VITALS: Ht 165.1 cm; Wt 63.0 kg
[~2018-05-19 19:51] MED LIST changes: +METHADOSE40 MG PO
[2018-05-20 13:29] VITALS: BP 160/94
[2018-05-20 13:47] LABS: INTER. NORMALIZED RATIO 0.9
[2018-05-20] MEDS ORDERED: LYRICA50 MG PO (13:48)
[2018-05-20 13:49] LABS: PTT 33.8 SEC (25-37)
[2018-05-20 19:40] VITALS: BP 138/84
[2018-05-21] VITALS (7 sets, daily range): BP systolic 127–147; BP diastolic 64–81
[2018-05-21 07:05] LABS: HEMATOCRIT 35.1 % (36.0-46.0); HEMOGLOBIN 11.2 G/DL (11.9-15.5); MCH 29.6 PG (29.0-34.0); MCHC 31.9 G/DL (30.0-36.0); MCV 92.6 FL (83-99); RBC DIS.WIDTH-CV 13.2 % (11.8-14.6); RBC DIS.WIDTH-SD 44.7 % (39-53); RED BLOOD COUNT 3.79 M/uL (3.80-5.20); WHITE BLOOD COUNT 10.8 K/uL (4.1-10.2)
[2018-05-21 07:10] LABS: PLATELET COUNT 261 K/uL (156-360)
[2018-05-21 07:42] LABS: CHLORIDE 103 MEQ/L (99-109); CREATININE 0.7 MG/DL (0.6-1.3); GFR ESTIMATE (CALCULATED) > 59 mL/min/; GLUCOSE 112 mg/dL (70-99); SODIUM 139 MEQ/L (136-147); UREA NITROGEN (BUN) 9 mg/dL (9-23)
[2018-05-21 07:49] LABS: POTASSIUM 4.8 MEQ/L (3.7-5.4)
[2018-05-22 04:20] VITALS: BP 135/72
[2018-05-22 05:34] LABS: HEMATOCRIT 30.2 % (36.0-46.0); HEMOGLOBIN 9.3 G/DL (11.9-15.5); MCH 29.3 PG (29.0-34.0); MCHC 30.8 G/DL (30.0-36.0); MCV 95.3 FL (83-99); PLATELET COUNT 258 K/uL (156-360); RBC DIS.WIDTH-CV 13.3 % (11.8-14.6); RBC DIS.WIDTH-SD 46.6 % (39-53); RED BLOOD COUNT 3.17 M/uL (3.80-5.20)
[2018-05-22 05:59] LABS: CHLORIDE 103 MEQ/L (99-109); CREATININE 0.7 MG/DL (0.6-1.3); GFR ESTIMATE (CALCULATED) > 59 mL/min/; GLUCOSE 90 mg/dL (70-99); POTASSIUM 3.9 MEQ/L (3.7-5.4); SODIUM 143 MEQ/L (136-147); UREA NITROGEN (BUN) 9 mg/dL (9-23)
[2018-05-22 07:36] VITALS: BP 139/83
[2018-05-22 12:58] VITALS: BP 117/74
[2018-05-22 15:19] VITALS: BP 111/68
[2018-05-22 19:09] VITALS: BP 104/56
[2018-05-23] VITALS (7 sets, daily range): BP systolic 121–148; BP diastolic 64–87
[2018-05-23 05:38] LABS: HEMATOCRIT 28.5 % (36.0-46.0); HEMOGLOBIN 8.8 G/DL (11.9-15.5); MCH 29.4 PG (29.0-34.0); MCHC 30.9 G/DL (30.0-36.0); MCV 95.3 FL (83-99); PLATELET COUNT 263 K/uL (156-360); RBC DIS.WIDTH-CV 13.4 % (11.8-14.6); RBC DIS.WIDTH-SD 46.5 % (39-53); RED BLOOD COUNT 2.99 M/uL (3.80-5.20); WHITE BLOOD COUNT 3.9 K/uL (4.1-10.2)
[2018-05-23 06:02] LABS: CHLORIDE 105 MEQ/L (99-109); CREATININE 0.6 MG/DL (0.6-1.3); GFR ESTIMATE (CALCULATED) > 59 mL/min/; GLUCOSE 91 mg/dL (70-99); POTASSIUM 4.3 MEQ/L (3.7-5.4); SODIUM 144 MEQ/L (136-147); UREA NITROGEN (BUN) 10 mg/dL (9-23)
[2018-05-24 07:07] VITALS: BP 135/77
[2018-05-24 11:35] VITALS: BP 147/74
[2018-05-24 15:37] VITALS: BP 138/70
[2018-05-24 20:39] VITALS: BP 163/72
[2018-05-24 23:58] VITALS: BP 151/69
[2018-05-25 07:45] VITALS: BP 173/82
[2018-05-25 11:27] VITALS: BP 137/67
[2018-05-25 16:00] VITALS: BP 138/83
[2018-05-25 21:33] VITALS: BP 177/89
[2018-05-26] VITALS (7 sets, daily range): BP systolic 115–141; BP diastolic 62–84
[2018-05-27] VITALS (7 sets, daily range): BP systolic 98–138; BP diastolic 64–76
[2018-05-28 00:07] VITALS: BP 124/61
[2018-05-28 03:35] VITALS: BP 115/68
[2018-05-28 08:00] VITALS: BP 137/66
[2018-05-28 11:27] VITALS: BP 124/71
[2018-05-28 20:04] VITALS: BP 136/63
[2018-05-28 23:45] VITALS: BP 114/80
[2018-05-29 04:50] VITALS: BP 119/64
[2018-05-29 08:17] VITALS: BP 124/70
[2018-05-29 15:54] VITALS: BP 123/79
[2018-05-29 20:02] VITALS: BP 113/71
[2018-05-29 23:53] VITALS: BP 133/72
[2018-05-30 05:13] VITALS: BP 111/71
[2018-05-30 07:26] VITALS: BP 91/54
[2018-05-30 10:30] VITALS: BP 118/65
[2018-05-30 15:48] VITALS: BP 108/59
[2018-05-30] MEDS ORDERED: DOCUSATE SODIU100 MG PO (18:15)
[2018-05-30] MEDS ORDERED: MOTRIN600 MG PO (18:15)
[2018-05-30] MEDS ORDERED: DIGOXIN125 MCG PO (18:15)
[2018-05-30 19:39] VITALS: BP 107/52
== END 2018-05-30 20:19 | disposition home health service (06) | DRG 167 ==
LOC: ENRESERV 19:51 → 2SOUTH 05-20 10:30 → 4EAST 05-20 13:01 → 2SOUTH 05-20 13:02 → ENRESERV 05-20 17:48 → 4EAST 05-20 19:39 → 2SOUTH 05-20 22:38 → 4EAST 05-26 06:33 → ENRESERV 05-27 11:58 → 3EAST 05-27 17:42
PROVIDERS: Surgery; Thoracic Surgery (Cardiothoracic Vascular Surgery)
DX: J90 Pleural effusion, not elsewhere classified (principal); J98.11 Atelectasis; J95.812 Postprocedural air leak; I10 Essential (primary) hypertension; G43.909 Migraine, unspecified, not intractable, without status migrainosus; I27.20 Pulmonary hypertension, unspecified; B18.2 Chronic viral hepatitis C; M54.9 Dorsalgia, unspecified; G89.29 Other chronic pain; F17.210 Nicotine dependence, cigarettes, uncomplicated; F31.9 Bipolar disorder, unspecified; I48.0 Paroxysmal atrial fibrillation; L89.150 Pressure ulcer of sacral region, unstageable; Z96.641 Presence of right artificial hip joint; Z79.891 Long term (current) use of opiate analgesic; Z88.1 Allergy status to other antibiotic agents; Z87.891 Personal history of nicotine dependence
CPT/HCPCS: 71045; 71046; 80048; 85027; 85610; 85730; 86850; 86900; 86901; 94640; 94669; 94799; A6214; J0690; J1100; J1160; J1170; J1644; J1885; J2250; J2405; J3010; J3475; J7050; J7120